=== PATIENT | female | born 1985 | race Caucasian/White ===

== ENCOUNTER 2022-02-18 19:15 | Emergency (ER) | payer OTHER ==
[2022-02-18] MEDS ORDERED: ZANAFLEX4 MG PO (22:27)
== END 2022-02-18 22:50 | disposition home or self-care (01) ==
LOC: ER1 19:15
DX: S06.0X9A Concussion with loss of consciousness of unspecified duration, initial encounter (principal); S13.4XXA Sprain of ligaments of cervical spine, initial encounter; W19.XXXA Unspecified fall, initial encounter; Y92.009 Unspecified place in unspecified non-institutional (private) residence as the place of occurrence of the external cause
CPT/HCPCS: 70450; 72125; 99283